=== PATIENT | female | born 1990 | race African-American/Black ===

== ENCOUNTER → 2018-08-02 | Outpatient (CLI) | payer OTHER ==
--- NOTE | 2018-08-02 11:26 | KCIC ---
EXAM: Thyroid sonogram. HISTORY: Hyperthyroidism. TECHNIQUE: Sonographic imaging of the thyroid was performed. COMPARISON: None. FINDINGS: The right thyroid lobe measures 5.4 x 1.5 x 1.7 cm. The left thyroid lobe measures 4.5 x 1.1 x 2.1 cm. The isthmus measures 2.6 mm. No solid or cystic thyroid lesion is seen. There is normal symmetric blood flow within the thyroid lobes. IMPRESSION: Unremarkable thyroid sonogram. Electronically signed by: Kristin Douglas MD (08/02/2018 11:24 AM) [place] [id number]
== END | disposition home or self-care (01) ==
LOC: KCIC US 09:43
PROVIDERS: ATTEND Nurse Practitioner Family
DX: E05.90 Thyrotoxicosis, unspecified without thyrotoxic crisis or storm (principal)
CPT/HCPCS: 76536